=== PATIENT | female | born 1950 | race Caucasian/White ===

== ENCOUNTER → 2019-09-15 11:20 | Outpatient (CLI) | payer OTHER, MEDICARE, SELFPAY ==
--- NOTE | ~2019-09-15 | MM_ITS ---
EXAMINATION: MM screening leticia BI w john HISTORY: Screening mammogram TECHNIQUE: Craniocaudal and mediolateral oblique 3-D tomosynthesis images were obtained and synthetic 2-D images were generated. CAD analysis was submitted and interpreted. COMPARISON: 03/16/2018, 03/13/2017 bilateral digital screening mammogram examinations 03/06/2016 bilateral diagnostic digital mammogram BREAST PARENCHYMAL COMPOSITION: There are scattered areas of fibroglandular density. FINDINGS: There is asymmetry and architectural distortion anteriorly in the inner left breast; diagno stic left mammogram and left breast ultrasound examination are recommended. There is no evidence of suspicious mass, calcification, or architectural distortion to suggest malign danyelle in the right breast. There has been no suspicious interval change on the right. IMPRESSION: 1. Anterior inner left breast asymmetry and architectural distortion 2. Diagnostic left mammogram and left breast ultrasound examination are recommended. BI-RADS Category 0: Incomplete: Needs additional imaging evaluation. Reviewed, dictated and finalized at location A. 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 Anterior inner left breast asymmetry and architectural distortion 2. Diagnostic left mammogram and left breast ultrasound examination are recomme nded. BI-RADS Category 0: Incomplete: Needs additional imaging evaluation.
== END ==
PROVIDERS: PCP Family Medicine; Visit Provider Obstetrics & Gynecology
DX: Z12.31 Encounter for screening mammogram for malignant neoplasm of breast (principal); R92.8 Other abnormal and inconclusive findings on diagnostic imaging of breast
CPT/HCPCS: 77063; 77067

== ENCOUNTER → 2019-09-28 14:12 | Outpatient (CLI) | payer MEDICARE, SELFPAY ==
--- NOTE | ~2019-09-28 | MM_ITS ---
EXAMINATION: MM diagnostic mammo unilat LT HISTORY: Anterior inner left breast asymmetry and architectural distortion suggested on screening leticia mogram of 09/15/2019 TECHNIQUE: Rolled medial and rolled lateral craniocaudal views of left breast. Additional full field ML and spot ML, MLO and cc 3-D tomosynthesis images of the left breast were performed and synthetic 2 -D images were generated. CAD analysis was submitted and interpreted. COMPARISON: 09/15/2019, 03/16/2018, 03/13/2017bilateral digital screening mammogram examinations FINDINGS: No reproducible mass or architectural distortion is is evident on these supplemental views. IMPRESSION: 1. No mammographic evidence of malignancy 2. Routine annual mammographic screening follow-up is recommended. BI-RADS Category 1: Negative Reviewed, dictated and finalized at location A. 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
== END ==
PROVIDERS: Visit Provider Obstetrics & Gynecology
DX: N60.22 Fibroadenosis of left breast (principal); R92.0 Mammographic microcalcification found on diagnostic imaging of breast
CPT/HCPCS: 77065

== ENCOUNTER 2019-10-18 15:15 | Emergency (ER) | payer MEDICARE, SELFPAY ==
--- NOTE | ~2019-10-18 | XR_ITS ---
EXAMINATION: XR chest 2V DATE: 10/18/2019 16:06 INDICATION: Cough. TECHNIQUE: Frontal and lateral views of the chest were obtained. COMPARISON: Chest 2 views 12/15/2017, CT abdomen and pelvis 12/22/2017 FINDINGS: The chest demonstrates clear lungs without pneumonia, pleural effusion, or pneumothorax. Th e heart size is normal. Median sternotomy wires and mediastinal surgical clips are seen, likely from prior coronary artery bypass grafting. IMPRESSION: 1. No acute cardiopulmonary disease. Reviewed, dictated and finalized at location A. 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
[2019-10-18 15:31] VITALS: BP 101/82; PULSE 77; RESP 16; TEMP 37.1; O2SAT 99
--- NOTE | 2019-10-18 15:44 | ED.URI ---
HPI - URI/Sore Throat General Chief Complaint: Upper Respiratory Infection Stated Complaint: Cough/SOB/Weaknes Time Seen by Provider: 10/18/19 15:44 Source: patient and RN notes reviewed Mode of arrival: ambulatory Limitations: no limitations History of Present Illness HPI Narrative: 68-year-old female presents with concern for cough, shortness of breath, malaise. Reports symptoms started on Friday. Reports she has not been taking any [id number]-[id number] medications. Reports history of congestive heart failure. Reports shortness of breath on exertion. MD elicited complaint: cough Related Data Home Medications Medication Instructions Recorded Confirmed apixaban 5 mg tablet 5 mg PO BID 07/28/19 10/18/19 aspirin 81 mg chewable tablet 81 mg PO DAILY 07/28/19 10/18/19 atorvastatin 40 mg tablet 40 mg PO DAILY 07/28/19 10/18/19 ezetimibe 10 mg tablet 10 mg PO DAILY 07/28/19 10/18/19 lansoprazole 30 mg capsule,delayed 30 mg PO DAILY 07/28/19 10/18/19 release metoprolol tartrate 25 mg tablet 25 mg PO DAILY 07/28/19 10/18/19 multivitamin 1 tablet PO DAILY 07/28/19 10/18/19 sertraline 50 mg tablet 50 mg PO DAILY 07/28/19 10/18/19 acyclovir 1 cap DAILY 10/18/19 10/18/19 aspirin 81 mg DAILY 10/18/19 10/18/19 nitrofurantoin 100 mg DAILY 10/18/19 10/18/19 ofloxacin 1 drp TID 10/18/19 10/18/19 Allergies Allergy/AdvReac Type Severity Reaction Status Date / Time amitriptyline Allergy Unknown Unknown Verified 10/18/19 15:50 Penicillins Allergy Unknown Unknown Verified 10/18/19 15:50 Sulfa (Sulfonamide Allergy Unknown Unknown Verified 10/18/19 15:50 Antibiotics) prednisone AdvReac Jittery Verified 10/18/19 15:50 Review of Systems Review of Systems: Narrative: CONSTITUTIONAL: Reports malaise. Denies chills, sweats, or fever. EYES: Denies visual changes, redness, or discharge. ENT: Reports rhinorrhea, congestion, sneezing. Denies sinus pain, otalgia and sore throat. CARDIOVASCULAR: Denies chest pain, palpitations, or edema. RESPIRATORY: Reports persistent cough, wheezing, episodes of dyspnea. GASTROINTESTINAL: Denies abdominal pain, nausea, vomiting, diarrhea SKIN: Denies rash or itching. MUSCULOSKELETAL: Denies myalgia. NEUROLOGIC: Denies headache. All systems reviewed & are unremarkable except as noted in HPI and below PMFSH Past Medical History Medical History (Updated 10/18/19 @ 16:19 by Luz Pace NP) STEPHANIE (obstructive sleep apnea) Snoring Family History Family History (Updated 03/15/16 @ 23:19 by DOCTOR UNKNOWN) Sibling Family history of rheumatoid arthritis Family history of emphysema Father Family history of diabetes mellitus in first degree relative Family history of coronary artery disease Mother Family history of emphysema Social History Social History Smoking status: Former smoker Smoking end date: 08/18/77 Alcohol intake: never Gender identity (if verbalized by the patient): Female Comments At time of signature, agree with nursing past medical, surgical, social and family history. There is no relevant family history pertinent to the presenting complaint Exam Narrative: Exam Narrative: GENERAL: Well-appearing, well-nourished, and in no acute distress. HEAD: Normocephalic EYES: PERRLA, conjunctivae clear ENT: Nares clear, turbinates erythematous, clear discharge. Mucous membranes moist. TM pearly ahuja with dull light reflex bilaterally; no tragal tenderness. Oropharynx not erythematous without lesions. Tonsils not enlarged and without exudate, no drooling, no hoarseness, no trismus. NECK: Supple. No lymphadenopathy CHEST: Clear to auscultation, breath sounds equal. Scattered wheeze, no rhonchi, rales, or stridor. No respiratory distress, speaks in full sentences. HEART: Regular rate and rhythm. No murmur heard. Normal peripheral pulses. SKIN: Warm, dry, no rash. NEURO: Alert and oriented x3. PSYCH: Normal mood and affect Course Course Emergency Course: Patient is aware of di
== END 2019-10-18 16:30 | disposition home or self-care (01) ==
PROVIDERS: Emergency Provider Nurse Practitioner; PCP Family Medicine
DX: R05 Cough (principal); I50.9 Heart failure, unspecified; I11.0 Hypertensive heart disease with heart failure; E78.5 Hyperlipidemia, unspecified
CPT/HCPCS: 71046; 99213; G0463

== ENCOUNTER → 2021-01-23 12:10 | Outpatient (CLI) | payer MEDICARE, SELFPAY ==
--- NOTE | ~2021-01-23 | MM_ITS ---
EXAMINATION: MM screening leticia BI w john HISTORY: Screening mammogram TECHNIQUE: Craniocaudal and mediolateral oblique 3-D tomosynthesis images were obtained and synthetic 2-D images were generated. CAD analysis was submitted and interpreted. COMPARISON: , 09/15/2019, 03/16/2018 bilateral digital screening mammogram examinations BREAST PARENCHYMAL COMPOSITION: There are scattered areas of fibroglandular density. FINDINGS: Stable mild fibroglandular asymmetry. Benign stable circumscribed small intramammary lymph node, upper outer posterior right breast. There is no evidence of suspicious mass, calcification, or architectural distortion to suggest malignancy in either breast. There has been no suspicious interva l change. IMPRESSION: 1. No mammographic evidence of malignancy. 2. Recommend routine screening mammography in one year. BI-RADS Category 2: Benign finding(s). Reviewed, dictated and finalized at location A.
== END ==
DX: Z12.31 Encounter for screening mammogram for malignant neoplasm of breast (principal)
CPT/HCPCS: 77063; 77067

== ENCOUNTER → 2022-03-21 10:49 | Outpatient (CLI) | payer MEDICARE, SELFPAY ==
--- NOTE | ~2022-03-21 | MM_ITS ---
EXAMINATION: MM screening leticia BI w john HISTORY: Screening TECHNIQUE: Craniocaudal and mediolateral oblique 3-D tomosynthesis images were obtained and synthetic 2-D images were generated. CAD analysis was submitted and interpreted. COMPARISON: Comparison to multiple prior studies sequentially, with oldest reviewed study dated 03/06. BREAST PARENCHYMAL COMPOSITION: There are scattered areas of fibroglandular density. FINDINGS: There are developing bilateral breast asymmetries in both breasts. There are no suspicious calcifications or architectural distortion. IMPRESSION: 1. Developing bilateral breast asymmetries. 2. Additional mammographic views and possible breast ultrasound are recommended. BI-RADS Category 0: Incomplete: Needs additional imaging evaluation. Reviewed, dictated and finalized at location A. IMPRESSION: 1. Developing bilateral breast asymmetries. 2. Additional mammographic views and possible breast ultrasound are recommended . BI-RADS Category 0: Incomplete: Needs additional imaging evaluation.
== END ==
DX: Z12.31 Encounter for screening mammogram for malignant neoplasm of breast (principal); R92.8 Other abnormal and inconclusive findings on diagnostic imaging of breast
CPT/HCPCS: 77063; 77067

== ENCOUNTER → 2022-04-29 08:43 | Outpatient (CLI) | payer MEDICARE, SELFPAY ==
--- NOTE | ~2022-04-29 | MMUS_ITS ---
EXAMINATION: MM diagnostic leticia BI w john, US breast BI complete HISTORY: Developing bilateral asymmetries reported in both breasts on 03/2022 screening mammogram TECHNIQUE: Additional 3-D tomosynthesis images of both breasts were performed and synthetic 2-D image s were generated. CAD analysis was submitted and interpreted. High resolution complete bilateral maryam st ultrasound including all 4 quadrants and subareolar areas was performed. COMPARISON: 03/2022, 01/23/2021 bilateral screening mammogram examinations FINDINGS: MAMMOGRAPHIC FINDINGS: Circumscribed approximately 4.8 x 6 mm new irregular opacity is noted in the mid to posterior lower i nner right breast (spot craniocaudal Tomosynthesis image 15/51; spot right MLO Tomosynthesis image 33 /51). No other suspicious mass, architectural distortion, malignant calcification, skin thickening or retra ction of either breast is detected. ULTRASOUND: .No definite suspicious mass or shadowing or other significant sonographic abnormality of either mayram st is evident. On the right additional ultrasound imaging was performed by Dr. Velez with particular attention to the lower inner quadrant at the site of the mammographic finding. No definite sonographic abnormality is identified by the technologist for by Dr. Velez at the site of the new irregular mammographic 4 .8 x 6 mm density. Tomosynthesis guided stereotactic breast biopsy is recommended. IMPRESSION: 1. Suspicious new 4.8 x 6 mm irregular mammographic opacity, lower inner quadrant of right breast, wi thout definite sonographic correlate 2. Tomosynthesis guided right stereotactic breast biopsy is recommended considering the suspicious ma mmographic features, including irregular margins and in the fact that this is a new mass since 01/24/20 21 BI-RADS category 4, suspicious findings. No referring physician or contact is provided by PACS. I requested that Simran pham make arrangements for notification of the findings and biopsy recommendation to the ordering physician and/or patient. Reviewed, dictated and finalized at location A. IMPRESSION: 1. Suspicious new 4.8 x 6 mm irregular mammographic opacity, lower inner quadra nt of right breast, without definite sonographic correlate 2. Tomosynthesis guided right stereotactic breast biopsy is recommended conside ring the suspicious mammographic features, including irregular margins and in t he fact that this is a new mass since 01/23/2021 BI-RADS category 4, suspicious findings. No referring physician or contact is provided by PACS. I requested that Simran williamson make arrangements for notification of the findings and biopsy recommendati on to the ordering physician and/or patient.
== END ==
DX: R92.8 Other abnormal and inconclusive findings on diagnostic imaging of breast (principal)
CPT/HCPCS: 76641; 77062; 77066; G0279

== ENCOUNTER 2022-12-03 19:10 | Emergency (ER) | payer MEDICARE, SELFPAY ==
--- NOTE | 2022-12-03 19:18 | ED.EYEPROB ---
HPI - Eye Problem General Chief complaint: Eye Problems Stated complaint: redness/painful right eye Time Seen by Provider: 12/03/22 19:32 Source: patient Mode of arrival: ambulatory Limitations: no limitations History of Present Illness HPI Narrative: 72 y/o female presented for c/o right eye redness and swelling rapidly worsening over the past hour. States it started with redness at the outer corner of the white part of the eye and has spread across the eye and has had swelling to the eyeball as well. Denies trauma/injury, itching, or straining. Rates pain 7/10 to the right eye, worse when closing the eye. Denies increased pain with eye movement. Denies vision changes, drainage, facial pain, headache, dizziness, n/v. Taking Coumadin, Plavix, and ASA 81mg daily. Hx CHF, afib, CAD with stents, HTN MD chief complaint: eye pain Related Data Home Medications Medication Instructions Recorded Confirmed atorvastatin 40 mg tablet (Lipitor) 40 mg PO DAILY 07/28/19 12/03/22 ezetimibe 10 mg tablet 10 mg PO DAILY 07/28/19 12/03/22 metoprolol tartrate 25 mg tablet 25 mg PO DAILY 07/28/19 12/03/22 multivitamin (Multiple Vitamins 1 tablet PO DAILY 07/28/19 12/03/22 tablet) aspirin 81 mg DAILY 10/18/19 12/03/22 clopidogrel 75 mg tablet 75 mg DIRECTED 12/03/22 12/03/22 famotidine 20 mg tablet 20 mg PO DIRECTED 12/03/22 12/03/22 losartan 25 mg tablet 25 mg DIRECTED 12/03/22 12/03/22 methimazole 5 mg tablet 5 mg DIRECTED 12/03/22 12/03/22 nitroglycerin 0.4 mg sublingual 0.4 mg DIRECTED 12/03/22 12/03/22 tablet sertraline 100 mg tablet 100 mg DIRECTED 12/03/22 12/03/22 tamoxifen 20 mg tablet 20 mg DIRECTED 12/03/22 12/03/22 warfarin 2 mg tablet 2 mg DIRECTED 12/03/22 12/03/22 Allergies Allergy/AdvReac Type Severity Reaction Status Date / Time amitriptyline Allergy Unknown Unknown Verified 10/18/19 15:50 Penicillins Allergy Unknown Unknown Verified 03/02/20 15:50 Sulfa (Sulfonamide Allergy Unknown Unknown Verified 10/18/19 15:50 Antibiotics) prednisone AdvReac Jittery Verified 10/18/19 15:50 Review of Systems Review of Systems: CONSTITUTIONAL: Denies body aches, fever, chills EYES:Endorses inner eye swelling, redness and pain to right eye, FB sensation, blurred vision. denies photophobia ENT: Denies rhinorrhea, congestion, sore throat, or otalgia. CARDIOVASCULAR: Denies chest pain, palpitations RESPIRATORY: Denies cough or dyspnea. GASTROINTESTINAL: Denies abdominal pain, nausea, vomiting, or diarrhea. SKIN: Denies rash, itching, or wounds. MUSCULOSKELETAL: Denies back pain, joint pain, or myalgia. NEUROLOGIC: Denies headache, numbness, tingling, or weakness. All systems reviewed & are unremarkable except as noted in HPI and below PMFSH Past Medical History Medical History Atrial fibrillation Chronic diastolic CHF (congestive heart failure) Coronary artery disease involving sioux coronary artery of sioux heart Hypertensive heart disease with heart failure STEPHANIE (obstructive sleep apnea) Snoring Surgical History Surgical History History of radiofrequency ablation procedure for cardiac arrhythmia Family History Family History Sibling Family history of rheumatoid arthritis Family history of emphysema Father Family history of diabetes mellitus in first degree relative Family history of coronary artery disease Mother Family history of emphysema Social History Social History Smoking status: Former smoker Smoking end date: 08/18/77 Alcohol intake: never Gender identity (if verbalized by the patient): Female Comments At time of signature, I have reviewed and agree with nursing past medical, surgical, social and family history unless otherwise noted. Please s
[2022-12-03 19:19] VITALS: BP 155/51; PULSE 71; RESP 18; TEMP 36.8; O2SAT 100
[2022-12-03 19:56] VITALS: BP 155/51; PULSE 71; RESP 18; TEMP 36.8; O2SAT 100
== END 2022-12-03 20:10 | disposition short-term general hospital (02) ==
LOC: EXPCOLL 19:13
PROVIDERS: Emergency Provider Nurse Practitioner Family; PCP Family Medicine
DX: H11.421 Conjunctival edema, right eye (principal); H11.31 Conjunctival hemorrhage, right eye; Z87.891 Personal history of nicotine dependence; I48.91 Unspecified atrial fibrillation; I25.10 Atherosclerotic heart disease of native coronary artery without angina pectoris; I11.0 Hypertensive heart disease with heart failure; I50.9 Heart failure, unspecified; Z79.82 Long term (current) use of aspirin; Z79.01 Long term (current) use of anticoagulants
CPT/HCPCS: 99212; G0463